=== PATIENT | male | born 1985 | race Two or more races ===

== ENCOUNTER 2017-03-10 23:26 | Emergency (ER) | payer OTHER ==
[~2017-03-10] VITALS: Ht 188 cm; Wt 90.7 kg
--- NOTE | 2017-03-10 23:46 | NUR ---
PATIENT WALKED INTO ER C/O BLOOD ON HIS UNDERWEAR X1 MONTH, PT IS ALERT, ORIENTED X 4, NO RESP DISTRESS NOTED OR REPORTED UPON ASSESSMENT...
--- NOTE | 2017-03-11 01:31 | NUR ---
Patient eloped from facility. ER physician notified. PT ALERT, ORIENTED X 4, NO RESP DISTRESS NOTED OR REPORTED UPON ASSESSMENT...
== END 2017-03-11 01:33 | disposition left against medical advice (07) ==
LOC: ER 23:39
DX: R30.0 Dysuria (principal); Z53.21 Procedure and treatment not carried out due to patient leaving prior to being seen by health care provider
CPT/HCPCS: A4663